=== PATIENT | female | born 1995 | race Caucasian/White ===

== ENCOUNTER → 2022-11-03 | Day surgery (SDC) | payer MEDICAID ==
[~2022-11-03] MED LIST: ACET-2708 PO; ATROPINE SULFATE 1MG/10ML SYR IV PRN; FENTANYL CITRATE/PF 50MCG/ML 2ML VIAL ONE; HEPARIN 1000 UNITS/ML 10ML ONE; IODIXANOL 320MG/ML 100 ML BOTTLE IV ONE; LIDOCAINE 2% JELLY PREFILLED SYRINGE MM ONE; LIDOCAINE HCL/PF 1% 10 MG/ML 5ML VIAL ONE; MIDAZOLAM HCL 2 MG/2 ML VIAL ONE; ONDANSETRON HCL 4MG/2ML INJ IV PRN; TETRACAINE/BENZOCAINE/BUTAMBEN 20 GM SPRAY MM ONE
[2022-11-03 08:12] LABS: UCG SCREEN NEGATIVE
[2022-11-03 11:50] LABS: BG BASE EXCESS -4.3 mmol/L (-2.0-2.0); BG CARBOXYHEMOGLOBIN 0.3 % (0.5-1.5); BG DEOXYHEMOGLOBIN 2.6 % (0.0-5.0); BG HCO3 ACT 20.1 mmol/L (22.0-26.0); BG METHEMOGLOBIN 0.2 % (0.0-1.5); BG OXYGEN SATURATION 97.4 % (92.0-98.5); BG OXYHEMOGLOBIN 96.9 % (94.0-97.0); BG PCO2 35.3 mmHg (35.0-45.0); BG PH 7.374 (7.350-7.450); BG PO2 95.4 mmHg (75.0-100.0); BG SAMPLE SITE ALINE; BG TOTAL HEMOGLOBIN 13.6 g/dL (12.0-18.0); BG VENT MODE ROOM AIR
== END | disposition home or self-care (01) ==
LOC: CCL 06:36
PROVIDERS: ATTEND Specialist
DX: R01.1 Cardiac murmur, unspecified (principal); I51.7 Cardiomegaly; Q21.10 Atrial septal defect, unspecified; Z79.899 Other long term (current) drug therapy; Z98.890 Other specified postprocedural states
CPT/HCPCS: 36600; 81025; 82375; 82805; 93312; 93460; C1760; C1769; C1887; C1893; J1644; J2250; J3010; J3490; Q9967; 99152; 99153; G0500

== ENCOUNTER → 2022-12-07 | Day surgery (SDC) | payer MEDICAID ==
[~2022-12-07] VITALS: Ht 154.9 cm; Wt 57.2 kg
[~2022-12-07] MED LIST changes: -ATROPINE SULFATE 1MG/10ML SYR IV PRN; -FENTANYL CITRATE/PF 50MCG/ML 2ML VIAL ONE; -HEPARIN 1000 UNITS/ML 10ML ONE; -IODIXANOL 320MG/ML 100 ML BOTTLE IV ONE; -LIDOCAINE 2% JELLY PREFILLED SYRINGE MM ONE; -LIDOCAINE HCL/PF 1% 10 MG/ML 5ML VIAL ONE; -MIDAZOLAM HCL 2 MG/2 ML VIAL ONE; -ONDANSETRON HCL 4MG/2ML INJ IV PRN; -TETRACAINE/BENZOCAINE/BUTAMBEN 20 GM SPRAY MM ONE
[2022-12-07 06:28] LABS: UCG SCREEN NEGATIVE
== END | disposition home or self-care (01) ==
LOC: OR 05:11 → EDSTATUS 07:30
PROVIDERS: ATTEND Thoracic Surgery (Cardiothoracic Vascular Surgery)
DX: Q21.10 Atrial septal defect, unspecified (principal); Z53.8 Procedure and treatment not carried out for other reasons; Z79.899 Other long term (current) drug therapy
CPT/HCPCS: 36415; 71045; 81025; 86850; 86900; 87426

== ENCOUNTER → 2022-12-14 | Day surgery (SDC) | payer MEDICAID ==
[~2022-12-14] VITALS: Ht 154.9 cm; Wt 57.2 kg
[~2022-12-14] MED LIST changes: +AMINOCAPROIC ACID 5,000 MG in SODIUM CHLORIDE 0.9% 230 ML IV NR; +CEFAZOLIN 2,000 MG in DEXT 5% WATER 100 ML IV NR; +DEL NIDO ELECTROLYTE-S(PH 7.4) 1,000 ML IV NR; +DOBUTAMINE 250MG PREMIX 250 ML IV PRN; +DOPAMINE 400 MG PREMIX 250 ML IV PRN; +EPINEPHRINE 5 MG in DEXT 5% WATER 245 ML IV PRN; +INSULIN REGULAR 100U/100ML PMX 100 ML IV NR; +NICARDIPINE 40MG/200ML PREMIX 250 ML IV PRN; +NOREPINEPHRINE 8 MG in DEXT 5% WATER 242 ML IV PRN; +POLYMYXIN B SULFATE 500000 UNITS/VIAL ONE; +SKIN ADHESIVE 0.7 GM EA TOP ONE; +SODIUM CHLORIDE 0.9% 1,000 ML IV SCH; +THROMBIN (BOVINE) 5000 UNITS/VIAL TOP ONE
[2022-12-14 05:27] LABS: CLARITY URINE CLOUDY (CLEAR); COLOR URINE YELLOW (YELLOW); KETONES URINE TRACE (NEGATIVE); LEUKOCYTE ESTERASE URINE 2+ (NEGATIVE); NITRITE URINE NEGATIVE (NEGATIVE); OCCULT BLOOD URINE NEGATIVE (NEGATIVE); PH URINE 5.5 (4.5-8.0); PROTEIN URINE NEGATIVE (NEGATIVE); SPECIFIC GRAVITY URINE 1.023 (1.005-1.030); UROBILINOGEN URINE 0.2 E.U./dL (0.2-1.0)
[2022-12-14 05:33] LABS: CHLORIDE 107 mEq/L (98-107)
[2022-12-14 05:36] LABS: HEMATOCRIT 41.1 % (36.0-48.0); HEMOGLOBIN 13.9 g/dL (12.0-16.0); MEAN CORPUSCULAR HEMOGLOBIN 30.8 pg (28.0-32.0); MEAN CORPUSCULAR VOLUME 91.1 fL (81.0-99.0); PLATELET 280 x1000/uL (130-400); RED BLOOD CELL COUNT 4.51 mill/uL (4.2-5.4); RED CELL DISTRIBUTION WIDTH 13.2 % (11.6-14.6)
[2022-12-14 06:23] LABS: UCG SCREEN NEGATIVE
== END | disposition home or self-care (01) ==
LOC: OR 05:31
PROVIDERS: ATTEND Thoracic Surgery (Cardiothoracic Vascular Surgery)
DX: Q21.10 Atrial septal defect, unspecified (principal); Z53.8 Procedure and treatment not carried out for other reasons; Z79.899 Other long term (current) drug therapy; Z98.890 Other specified postprocedural states; Z20.822 Contact with and (suspected) exposure to COVID-19
CPT/HCPCS: 36415; 80048; 81003; 81025; 85027; 86850; 86900; 86901; 86920; 87426; C9803; J0690; J1815; J3490; J7050; J7060